=== PATIENT | male | born 1995 | race Two or more races ===

== ENCOUNTER 2020-11-08 10:41 | Emergency (ER) | payer OTHER ==
[~2020-11-08] VITALS: Ht 180.3 cm; Wt 91.8 kg
[2020-11-08] MEDS ORDERED: IV NORMAL SALINE 1,000ML 1,000 ML IV ONE (10:45)
[2020-11-08] MEDS ORDERED: IOHEXOL 300 MG/ML 75 ML VIAL. IV ONE (11:00)
[2020-11-08 11:12] LABS: BASO % 1 % (0-3); EOS # 0.2 x10^3/uL (0.0-0.7); EOS % 2 % (0-3); HEMATOCRIT 41.1 % (39.0-53.0); HEMOGLOBIN 13.8 g/dL (13.0-17.5); LYMPH # 3.1 x10^3/uL (1.0-4.8); LYMPH % 33 % (24-48); MEAN CORPUSCULAR HEMOGLOBIN 31 pg (25-35); MEAN CORPUSCULAR HGB CONC 34 g/dL (31-37); MEAN CORPUSCULAR VOLUME 93 fL (79-100); MONO # 0.8 x10^3/uL (0.0-1.1); MONO % 8 % (0-9); NEUT # 5.4 x10^3uL (1.8-7.7); NEUT % 56 % (31-73); PLATELET COUNT 199 x10^3/uL (140-400); RED BLOOD COUNT 4.43 x10^6/uL (4.30-5.70); WHITE BLOOD COUNT 9.5 x10^3/uL (4.0-11.0)
[2020-11-08 11:23] LABS: CALCIUM 9.1 mg/dL (8.5-10.1); CREATININE 1.1 mg/dL (0.7-1.3); GFR 80.9; POTASSIUM 4.4 mmol/L (3.5-5.1)
[2020-11-08 11:30] LABS: ALBUMIN 4.3 g/dL (3.4-5.0); ALBUMIN/GLOBULIN RATIO 1.5 (1.0-1.7); TOTAL BILIRUBIN 0.6 mg/dL (0.2-1.0); TOTAL PROTEIN 7.2 g/dL (6.4-8.2)
--- NOTE | 2020-11-08 11:36 | RAD ---
INDICATION: Reason: RLQ pain. NAUSEA, / Spl. Instructions: / History: . COMPARISON: None. TECHNIQUE: Axial CT images obtained through the abdomen and pelvis with contrast. One or more of the following individualized dose reduction techniques were utilized for this examinat ion: 1. Automated exposure control; 2. Adjustment of the mA and/or kV according to patient size; 3 . Use of iterative reconstruction technique. FINDINGS: The contrast bolus is suboptimal. Abdominal aorta not aneurysmal. No intrahepatic bile duct dilation. No peripancreatic fluid collection. Spleen unremarkable. Urinary bladder is partially distended. Mild prominence right renal pelvis. Moderate stool at the colon. The suspected appendix measures up to about 9 mm. There are loops of unopacified small bowel in the r egion which makes it difficult to assess for associated inflammatory changes. Pars defects at L5. Mild degenerative changes spine. IMPRESSION: * The suspected appendix is dilated measuring up to 9 mm. There are multiple unopacified loops of sm all bowel within the region which makes evaluation for adjacent inflammatory changes limited. Would c orrelate with symptoms and lab markers given that early appendicitis could have this appearance in th e correct clinical context but the findings are not highly specific given that adjacent inflammatory changes cannot be confirmed secondary to adjacent loops of unopacified small bowel. Electronically signed by: Jace Pizano MD (11/08/2020 11:33 AM) [id number]
--- NOTE | 2020-11-08 11:54 | PHYS DOC ---
Past History Past Surgical History: Other Additional Past Surgical Histo: HERNIA Alcohol Use: None General Adult EDM: Chief Complaint: ABDOMINAL PAIN HPI: HPI: 24-year-old male presents with right lower quadrant abdominal pain. The patient is accompanied by guards. He tells me that he started generalized abdominal pain yesterday that kept him up all night and has isolated more toward the right lower quadrant. Today, he has right lower quadrant pain especially with bouncing or palpation of the area. He denies nausea, vomiting, diarrhea. He has no abdominal surgical history. Denies fever or chills.] Review of Systems: Review of Systems: Constitutional: Denies fever or chills Eyes: Denies change in visual acuity HENT: Denies nasal congestion or sore throat Respiratory: Denies cough or shortness of breath Cardiovascular: Denies chest pain or edema GI: Right lower quadrant abdominal pain : Denies dysuria Musculoskeletal: Denies back pain or joint pain Integument: Denies rash Neurologic: Denies headache, focal weakness or sensory changes Endocrine: Denies polyuria or polydipsia Lymphatic: Denies swollen glands Psychiatric: Denies depression or anxiety Current Medications: Current Meds: Current Medications Medications (Trade) Dose Ordered Sig/Latoya Start Time Stop Time Status Last Admin Dose Admin Iohexol (Omnipaque 300 Mg/ml) 75 ml 1X ONCE 11/08/20 11:00 11/08/20 11:11 DC 11/08/20 11:18 75 ML Sodium Chloride 1,000 ml @ 1,000 mls/hr 1X ONCE 11/08/20 10:45 11/08/20 11:44 DC 11/08/20 11:38 1,000 MLS/HR Allergies: Allergies: Allergies Coded Allergies Type Severity Reaction Last Updated Verified No Known Drug Allergies 11/08/20 No Physical Exam: PE: Constitutional: Well developed, well nourished, no acute distress, non-toxic appearance. [] HENT: Normocephalic, atraumatic, bilateral external ears normal, oropharynx moist, no oral exudates, nose normal. [] Eyes: PERRLA, EOMI, conjunctiva normal, no discharge. [] Neck: Normal range of motion, no tenderness, supple, no stridor. [] Cardiovascular: Heart rate regular rhythm, no murmur [] Lungs & Thorax: Bilateral breath sounds clear to auscultation [] Abdomen: Bowel sounds normal, soft, right lower quadrant tenderness with guarding and rebound, no masses, no pulsatile masses. [] Skin: Warm, dry, no erythema, no rash. [] Back: No tenderness, no CVA tenderness. [] Extremities: No tenderness, no cyanosis, no clubbing, ROM intact, no edema. [] Neurologic: Alert and oriented X 3, normal motor function, normal sensory function, no focal deficits noted. [] Psychologic: Affect normal, judgement normal, mood normal. [] Current Patient Data: Labs: Laboratory Tests Test 11/08/20 10:55 White Blood Count 9.5 x10^3/uL (4.0-11.0) Red Blood Count 4.43 x10^6/uL (4.30-5.70) Hemoglobin 13.8 g/dL (13.0-17.5) Hematocrit 41.1 % (39.0-53.0) Mean Corpuscular Volume 93 fL (79-100) Mean Corpuscular Hemoglobin 31 pg (25-35) Mean Corpuscular Hemoglobin Concent 34 g/dL (31-37) Red Cell Distribution Width 13.0 % (11.5-14.5) Platelet Count 199 x10^3/uL (140-400) Neutrophils (%) (Auto) 56 % (31-73) Lymphocytes (%) (Auto) 33 % (24-48) Monocytes (%) (Auto) 8 % (0-9) Eosinophils (%) (Auto) 2 % (0-3) Basophils (%) (Auto) 1 % (0-3) Neutrophils # (Auto) 5.4 x10^3uL (1.8-7.7) Lymphocytes # (Auto) 3.1 x10^3/uL (1.0-4.8) Monocytes # (Auto) 0.8 x10^3/uL (0.0-1.1) Eosinophils # (Auto) 0.2 x10^3/uL (0.0-0.7) Basophils # (Auto) 0.0 x10^3/uL (0.0-0.2) Sodium Level 144 mmol/L (136-145) Potassium Level 4.4 mmol/L (3.5-5.1) Chloride Level 107 mmol/L (98-107) Carbon Dioxide Level 28 mmol/L (21-32) Anion Gap 9 (6-14) Blood Urea Nitrogen 23 mg/dL (8-26) Creatinine 1.1 mg/dL (0.7-1.3) Estimated GFR (Cockcroft-Gault) 80.9 BUN/Creatinine Ratio 21 (6-20) H Glucose Level 94 mg/dL (70-99) Calcium Level 9.1 mg/dL (8.5-10.1) Total Bilirubin 0.6 mg/dL (0.2-1.0) Aspartate Amino Transferase (AST) 21 U/L (15-37) Alanine Aminotransferase (ALT) 36 U/L (16-63) Alkaline Phosphatase 66 U/L (46-116) Total Protein 7.2 g/dL (6.4-8.2) Albumin 4.3 g/dL (3.4-5.0) Albumin/Globulin Ratio 1.5 (1.0-1.7) Vital Signs: Vital Signs Date Time Temp Pulse Resp B/P (MAP) Pulse Ox O2 Delivery O2 Flow Rate FiO2 11/08/20 10:45 98.6 79 20 140/61 100 Room Air EKG: EKG: [] Radiology/Procedures: Radiology/Procedures: [] Impressions: INDICATION: Reason: RLQ pain. NAUSEA, / Spl. Instructions: / History: . COMPARISON: None. TECHNIQUE: Axial CT images obtained through the abdomen and pelvis with contrast. One or more of the following individualized dose reduction techniques were utilized for this examination: 1. Automated exposure control; 2. Adjustment of the mA and/or kV according to patient size; 3. Use of iterative reconstruction technique. FINDINGS: The contrast bolus is suboptimal. Abdominal aorta not aneurysmal. No intrahepatic bile duct dilation. No peripancreatic fluid collection. Spleen unremarkable. Urinary bladder is partially distended. Mild prominence right renal pelvis. Moderate stool at the colon. The suspected appendix measures up to about 9 mm. There are loops of unopacified small bowel in the region which makes it difficult to assess for associated inflammatory changes. Pars defects at L5. Mild degenerative changes spine. IMPRESSION: * The suspected appendix is dilated measuring up to 9 mm. There are multiple unopacified loops of small bowel within the region which makes evaluation for adjacent inflammatory changes limited. Would correlate with symptoms and lab markers given that early appendicitis could have this appearance in the correct clinical context but the findings are not highly specific given that adjacent inflammatory changes cannot be confirmed secondary to adjacent loops of unopacified small bowel. Electronically signed by: Jonathan Tracy MD (11/08/2020 11:33 AM) DESKTOP- [id number] DICTATED AND SIGNED BY: JONATHAN TRACY MD DATE: 11/08/20 1123 CC: TYRA LIAO DO; PCP,PAULA ~MTH0 0 Heart Score: C/O Chest Pain: N/A Risk Factors: Risk Factors: DM, Current or recent (<one month) smoker, HTN, HLP, family history of CAD, obesity. Risk Scores: Score 0 - 3: 2.5% MACE over next 6 weeks - Discharge Home Score 4 - 6: 20.3% MACE over next 6 weeks - Admit for Clinical Observation Score 7 - 10: 72.7% MACE over next 6 weeks - Early Invasive Strategies Course & Med Decision Making: Course & Med Decision Making Pertinent Labs and Imaging studies reviewed. (See chart for details) The patient's labs are unremarkable. His CT shows a dilated appendix but visualization for inflammatory Tory changes is difficult. See official read for more details. Given his symptoms and the localization of his pain, I am highly suspicious for appendicitis. Consult general surgery. I spoke with Dr. Morataya and he has recommend the patient be transferred to [facility] for 24 hours of observation. If the patient's symptoms continue or worsen he will go to the OR otherwise he may be discharged back [facility]. The patient and the guards are in agreement with this plan. The patient will go by ambulance and have 24-hour guard. He is in stable condition and this is a non critical transfer. I spoke with Dr. Garay and he has accepted the patient for transfer and admission. [] Dragon Disclaimer: Dragon Disclaimer: This electronic medical record was generated, in whole or in part, using a voice recognition dictation system. Departure Departure: Impression: Primary Impression: Appendicitis Qualified Codes: K35.30 - Acute appendicitis with localized peritonitis, without perforation or gangrene Disposition: 02 [facility] Admitting Physician: Pedro Luis Garay Condition: STABLE Referrals: PCP,PAULA (PCP) TYRA LIAO DO Nov 08, 2020 11:54
[2020-11-08 11:55] LABS: BACTERIA,URINE 0 /HPF (0-FEW); BILIRUBIN,URINE NEG (NEG); CLARITY,URINE CLEAR; COLOR,URINE YELLOW; GLUCOSE,URINE NEG (NEG); NITRITE,URINE NEG (NEG); RBC,URINE 0 /HPF (0-2); UROBILINOGEN,URINE 0.2 mg/dL (0.2 mg/dL); WBC,URINE 0 /HPF (0-4)
[2020-11-08 13:46] VITALS: BP 110/68
== END 2020-11-08 14:27 | disposition short-term general hospital (02) ==
LOC: ER 10:41
DX: K35.30 Acute appendicitis with localized peritonitis, without perforation or gangrene (principal)
CPT/HCPCS: 36415; 74177; 80053; 81001; 85025; 96360; 99285; J7030; Q9967